=== PATIENT | female | born 1985 | race Caucasian/White ===

== ENCOUNTER 2017-11-26 11:07 | Outpatient (CLI) | payer OTHER ==
[~2017-11-26 11:07] MED LIST: CEFUROXIME250 MG PO; CIPRO500 MG PO; KETO10TA2 PO; PROVERA2.5 MG PO
== END 2017-11-26 13:14 | disposition home or self-care (01) ==
LOC: NST 11:07
DX: Z34.83 Encounter for supervision of other normal pregnancy, third trimester (principal)

== ENCOUNTER → 2017-12-13 | Outpatient (CLI) | payer OTHER | END | disposition home or self-care (01) | LOC: NST 15:25 | DX: Z34.83 Encounter for supervision of other normal pregnancy, third trimester (principal) ==

== ENCOUNTER 2017-12-28 10:35 | Inpatient (IN) | payer OTHER ==
[~2017-12-28] VITALS: Ht 162.6 cm; Wt 113.9 kg
[2017-12-28] MEDS ORDERED: IRON18 MG PO (10:53)
[2017-12-28] MEDS ORDERED: OBSTETRIX EC C1 EACH PO (10:53)
== END 2017-12-30 13:55 | disposition home or self-care (01) | DRG 775 ==
LOC: LDR 10:35 → OB/GYN 12-29 03:18
PROC: 10E0XZZ Delivery of Products of Conception, External Approach (ICD-10-PCS; principal; 2017-12-28)
PROC: 0KQM0ZZ Repair Perineum Muscle, Open Approach (ICD-10-PCS; 2017-12-28)
PROC: 4A1HXCZ Monitoring of Products of Conception, Cardiac Rate, External Approach (ICD-10-PCS; 2017-12-28)
PROC: 4A033R1 Measurement of Arterial Saturation, Peripheral, Percutaneous Approach (ICD-10-PCS; 2017-12-28)
DX: O70.1 Second degree perineal laceration during delivery (principal); Z37.0 Single live birth; Z3A.38 38 weeks gestation of pregnancy

== ENCOUNTER → 2019-11-17 | Outpatient (CLI) | payer OTHER ==
[~2019-11-17] MED LIST changes: +IRON18 MG PO; +OBSTETRIX EC C1 EACH PO
== END | disposition home or self-care (01) ==
LOC: OFIC 805 12:30
PROVIDERS: ATTEND Otolaryngology
DX: J30.89 Other allergic rhinitis (principal); K21.9 Gastro-esophageal reflux disease without esophagitis; G47.33 Obstructive sleep apnea (adult) (pediatric)